=== PATIENT | male | born 1975 | race Caucasian/White ===

== ENCOUNTER 2025-09-13 19:42 | Emergency (ER) | payer OTHER ==
[~2025-09-13] VITALS: Ht 182.9 cm; Wt 90.7 kg
[2025-09-13] MEDS ORDERED: LIDO30AD10 TP (21:05)
[2025-09-13] MEDS ORDERED: ACET325C7 PO (21:05)
[2025-09-13] MEDS ORDERED: IBUP-1957 PO (21:05)
[2025-09-13] MEDS ORDERED: METH-649 PO (21:05)
[2025-09-13] MEDS ORDERED: KETOROLAC TROMETHAMINE 15 MG/ML VIAL ONE (21:13)
[2025-09-13] MEDS: KETOROLAC TROMETHAMINE 15 MG/ML VIAL IM ONE (21:20)
[2025-09-13 21:27] VITALS: BP 155/90; TEMP 98.6; O2SAT 99
== END 2025-09-13 21:28 | disposition home or self-care (01) ==
LOC: ER 19:56
DX: M19.071 Primary osteoarthritis, right ankle and foot (principal); M54.2 Cervicalgia; M25.532 Pain in left wrist; I10 Essential (primary) hypertension; Z79.1 Long term (current) use of non-steroidal anti-inflammatories (NSAID)
CPT/HCPCS: 99284; 96372; 72040; 73610; 73630; 73110; J1885